=== PATIENT | female | born 1980 ===

== ENCOUNTER → 2016-10-11 | Outpatient (CLI) | payer BC | LOC: FIMAGING 15:42 | PROVIDERS: ATTEND Family Medicine | DX: Z12.31 Encounter for screening mammogram for malignant neoplasm of breast (principal) | CPT/HCPCS: G0202 ==

== ENCOUNTER → 2017-05-18 | Outpatient (CLI) | payer BC | LOC: FIMAGING 11:51 | PROVIDERS: ATTEND Obstetrics & Gynecology | DX: O09.522 Supervision of elderly multigravida, second trimester (principal); Z3A.20 20 weeks gestation of pregnancy ==

== ENCOUNTER → 2017-08-14 | Outpatient (CLI) | payer BC | LOC: FIMAGING 12:22 | PROVIDERS: ATTEND Obstetrics & Gynecology | DX: O09.523 Supervision of elderly multigravida, third trimester (principal); Z3A.33 33 weeks gestation of pregnancy; O44.03 Complete placenta previa NOS or without hemorrhage, third trimester ==

== ENCOUNTER 2017-09-11 07:46 | Inpatient (IN) | payer BC ==
--- NOTE | 2017-09-11 07:54 | PDGENHP ---
History and Physical - Chief Complaint Scheduled PLTCS for placenta previa - History of Present Illness 37 yo today at 37w2d by MILADYS of 09/30/17 (IUI date c/w 6 and 8 wk US's) - here for scheduled PLTCS due to persistent complete placenta. Previa first identified on 20 wk US lvl II with MFM (due to AMA). Followed w serial scans and has not resolved. She has not had issues with bleeding related to this, but counseled that 37 wk scheduled section recommended for delivery. Most recent US 35wks - [id number], anterior previa with granados abutting os, normal fluid. Otherwise hypothyroid, AMA, and aforementioned assisted in getting CCRM w/ ovulation induction meds and IUI. History Information - Allergies/Home Medication List Allergies/Adverse Reactions: No Known Allergies Allergy (Unverified 09/20/10 23:02) Home Medications: NO HOME MEDICATIONS 09/20/10 [Last Taken Unknown] I have personally reviewed and updated: family history, medical history, social history, surgical history Past Medical History: AMA, Hypothyroidism Review of Systems Review of Systems: ROS: 10pt was reviewed & negative except for what was stated in HPI & below Physical Exam Physical Exam: Constitutional: no apparent distress Respiratory: no respiratory distress Gastrointestinal: soft, non-tender abdomen Lab Data & Imaging Review 09/11/17 08:49 Assessment & Plan Assessment: 37 yo at 37w2d here for scheduled PLTCS due to anterior placenta previa. - Routine preop orders, weight-based Ancef. - She would like to keep her placenta, which I am okay with. - Consents, RBA, discussed at our visit in clinic last week. No tubal. JM
[2017-09-11] MEDS ORDERED: CITRIC ACID/SODIUM CITRATE 30 ML UDCUP PO ONE ×2 (07:57→10:15)
[2017-09-11] MEDS ORDERED: ceFAZolin 2 GM/DEXTROSE 100 ML IV ONE (07:57)
[2017-09-11] MEDS ORDERED: LR 500 ML IV ONE (07:57)
[2017-09-11] MEDS ORDERED: LR 1,000 ML IV SCH (08:00)
[2017-09-11] MEDS ORDERED: ceFAZolin 2 GM in D5W 100 ML IV ONE (08:15)
[2017-09-11] MEDS ORDERED: ceFAZolin 2 GM/SWFI 2 GM/20 ML SYR IVP ONE (08:30)
[2017-09-11 09:15] LABS: PLATELET COUNT 171 10^3/uL (150-400)
--- NOTE | 2017-09-11 10:06 | PREANESOB ---
Obstetric Pre-Anesthesia Info - General Info Proposed Procedure: cs : 1 Para: 0 MILADYS: 09/30/17 Gestational Age: 37 week(s) and 2 day(s) - Info Status: Full Term Monitors: External FHR Pattern: Reassuring - Labor Status Section History: Primary Indications for Current Section: Placenta Previa Labor Epidural: No Anesthesia ROS: hypothyroid, otherwise neg Allergies/Adverse Reactions: Allergy/AdvReac Type Severity Reaction Status Date / Time No Known Allergies Allergy Unverified 09/20/10 23:02 Home Medications: Medication Instructions Recorded NO HOME MEDICATIONS 09/20/10 Visit Medications: Generic Name Dose Route Start Last Admin Trade Name Freq PRN Reason Stop Dose Admin Lactated Ringer's 1,000 mls @ 125 mls/hr 09/11/17 08:00 Lr IV 09/12/17 07:59 CONT IZZY Discontinued Medications Generic Name Dose Route Start Last Admin Trade Name Freq PRN Reason Stop Dose Admin Citric Acid/Sodium Citrate 30 ml 09/11/17 07:57 Bicitra PO 09/11/17 07:58 ONCALL ONE Lactated Ringer's 500 mls @ 0 mls/hr 09/11/17 07:57 Lr IV 09/11/17 07:58 ONCE ONE As Directed Cefazolin Sodium 2 gm in 20 mls @ 200 mls/hr 09/11/17 08:30 Cefazolin Syringe IVP 09/11/17 08:35 ONCALL ONE - Anesthesia History Response to Local Anesthetics: Normal Anesthesia & Operative History: No Prior Problems (dental) Family Anesthesia History: Negative - Social History Substance Use/Abuse: Denies - Vital Signs Height/Weight (Nursing): Height 162.56 cm Weight 71.214 kg - Focused Exam Neck exam: FROM Mallampati Score: Class 2 Mouth exam: normal dental/mouth exam Pulmonary: no respiratory distress Cardiovascular: regular rate and rhythym Labs: 09/11/17 08:49 - Plan Anesthetic Plan: sab Consent Signed and on Chart: Yes Patient/Guardian Understands and Agrees to Plan: Yes
[2017-09-11] MEDS ORDERED: fentaNYL 100 MCG/2 ML INJ ONE (10:32)
[2017-09-11] MEDS ORDERED: morphINE PF 5 MG/10 ML INJ ONE (10:33)
[2017-09-11] MEDS ORDERED: PHENYLEPHRINE 10 MG/ML SDV ONE (10:36)
[2017-09-11] MEDS ORDERED: OXYTOCIN 100 UNITS/10 ML VIAL ONE (10:41)
[2017-09-11] MEDS ORDERED: ONDANSETRON 4 MG/2 ML VIAL ONE (10:41)
[2017-09-11] MEDS ORDERED: METHYLERGONOVINE MAL 0.2 MG/ML INJ ONE (11:32)
--- NOTE | 2017-09-11 12:21 | POSTANESTH ---
Post Anesthetic Evaluation Cardiovascular Status: Normal, Stable Respiratory Status: Normal, Stable Level of Consciousness/Mental Status: Can Participate in Eval Pain Control: Adequate, Prn Tx Ordered Nausea/Vomiting Control: Adequate, Prn Tx Ordered Complications Possibly Related to Anesthesia: None Noted
[2017-09-11] MEDS ORDERED: MEPERIDINE 25 MG/0.5 ML AMP IVP PRN (12:22)
[2017-09-11] MEDS ORDERED: NALOXONE HCL 0.4 MG/ML INJ IVP PRN ×2 (12:22)
[2017-09-11] MEDS ORDERED: ONDANSETRON 4 MG/2 ML VIAL IVP PRN ×2 (12:22)
[2017-09-11] MEDS ORDERED: fentaNYL 100 MCG/2 ML INJ IVP PRN (12:22)
[2017-09-11] MEDS ORDERED: HYDROmorphONE/DILAUDID 1 MG/ML INJ IVP PRN (12:22)
[2017-09-11] MEDS ORDERED: HYDROCODONE/APAP 5/325 TAB PO PRN (12:22)
[2017-09-11] MEDS ORDERED: PHENYLEPHRINE HCL 100 MCG/ML SYR IVP PRN (12:22)
--- NOTE | 2017-09-11 12:24 | POSTOPPROG ---
Post Op Note Date of Operation: 09/11/17 Surgeon: Dhaval Rodriguez Deputy Coroner: Vicki Haynes MD Anesthesiologist: Avery Richard MD Anesthesia: Spinal Pre-op Diagnosis: Complete placenta previa Post-op Diagnosis: Same Procedure: Primary low transverse section Findings: Low anterior placenta, vigorous baby boy, grossly normal placenta and cord Inf/Abcess present in the surg proc area at time of surgery?: No Depth: Superfical (Skin SQ) EBL: 600cc Complications: None Specimen(s): Cord blood gasses not sent. Placenta also not sent.
[2017-09-11] MEDS ORDERED: SIMETHICONE 80 MG TAB CHEW PO PRN (12:29)
[2017-09-11] MEDS ORDERED: DOCUSATE SODIUM 100 MG CAP PO PRN (12:29)
[2017-09-11] MEDS ORDERED: PROMETHAZINE HCL 25 MG/ML INJ IVP PRN (12:29)
[2017-09-11] MEDS ORDERED: ACETAMINOPHEN 325 MG TAB PO PRN (12:29)
--- NOTE | 2017-09-11 12:29 | SUROPNOTE ---
[facility] Operative Report - Surgery Date of Operation: 09/11/17 Surgeon: Dhaval Rodriguez Meat Clerk: Vicki Haynes MD Anesthesiologist: Avery Richard MD Anesthesia: Spinal Pre-op Diagnosis: Complete placenta previa Post-op Diagnosis: Same Procedure: Primary low transverse section Findings: Low anterior placenta, vigorous baby boy, grossly normal placenta and cord Inf/Abcess present in the surg proc area at time of surgery?: No Depth: Superfical (Skin SQ) EBL: 600cc Complications: None Specimen(s): Cord blood gasses not sent. Placenta also not sent. Technique: The patient was taken to the OR where spinal was placed and anesthesia found to be adequate. The patient was then positioned supine with a leftward tilt and a time-out was performed. She was given weight-based antibiotics prior to skin incision. The abdomen was prepped and draped in normal sterile fashion. A Pfannenstiel skin incision was made with the scalpel and carried down to the fascia. The fascia was incised in the midline and the incision extended bilaterally sharply with scissors. The fascia was dissected off of the underlying rectus muscles superiorly and inferiorly also sharply using scissors. The rectus were in the midline and the peritoneum identified and entered bluntly without issue. The peritoneal incision was extended and the bladder blade was then placed. The vesicouterine junction was identified and a bladder flap created sharply and developed bluntly. A transverse incision was made with the scalpel in the lower uterine segment and extended with cephalad and caudad traction on the incision edges. We first encountered placenta after hysterotomy. I introduced by hand and dissected the placenta off superiorly so that I could then get around and down to the head and elevated and deliver that. This was done quickly and without any delay. The head was easily elevated out of the pelvis and delivered atraumatically, followed by the shoulders and body. The nose and mouth were bulb suctioned. We did wait for 60 seconds before clamping and cutting the cord and then the infant was handed to pediatric staff. Cord blood gases were not sent and the placenta was not sent to pathology. The uterus was then exteriorized and carefully wiped of all debris. The uterus was closed in two layers - the first layer was running with 0 vicryl and the second a vertical imbricating layer using 0-vicryl. The gutters were cleared of all clots. The uterine incision was reinspected and found to be hemostatic after placement of additional figure of eight sutures of 3-0 vicryl. The uterus was then returned to the abdomen. The fascia was elevated and the rectus muscles and subcutaneous tissues were found to be hemostatic. The fascia was closed with a running 0-Vicryl - two sutures eminating from corners and meeting in the midline. The subcutaneous tissues were irrigated and hemostasis obtained. The subcutaneous space was closed with interrupted sutures of 2-0 vicryl. The skin was closed with 4-0 vloc undyed and then covered with Medipore dressing. The patient tolerated the procedure and was taken to recovery in stable condition. Lap, needle, sponge, and instrument count were announced as correct times two. I was present and scrubbed for the entire case.
[2017-09-11] MEDS ORDERED: LACTULOSE 20 GM/30 ML UDCUP PO PRN (12:31)
[2017-09-11] MEDS ORDERED: BISACODYL 10 MG SUPP PR PRN (12:31)
[2017-09-11] MEDS ORDERED: MAGNESIUM HYDROXIDE 30 ML UDCUP PO PRN (12:31)
[2017-09-11] MEDS ORDERED: POLYETHYLENE GLYCOL 3350 17 GM PKT PO PRN (12:31)
[2017-09-11] MEDS: KETOROLAC 30 MG/1 ML SDV IVP SCH ×3 (15:23→21:32)
--- NOTE | 2017-09-11 20:50 | OBPP ---
Progress Note Assessment/Plan: Assessment: 37 yo pod# 0 s/p PLTCS for placenta previa breast feeding Plan: routine post care and post operative care 09/11/17 20:47 Subjective/ Course: 09/11/17 20:49 patient is doing great! pain is well controlled. tolerating diet. ambulated in her room. denies headache and changes in vision. working on breast feeding. Objective: 09/11/17 08:49 Patient ABO/Rh B POSITIVE 09/11/17 09:35 Temp Pulse Resp BP Pulse Ox 36.6 C 80 18 99/65 L 100 09/11/17 19:40 09/11/17 19:40 09/11/17 19:40 09/11/17 19:40 09/11/17 19:40 Physical Exam - Physical Exam Neck: non-tender, full range of motion Respiratory: chest non-tender, lungs clear, normal breath sounds Cardiac/Chest: normal peripheral pulses, regular rate, rhythm Abdomen: normal bowel sounds, non-tender, other (fundus firm) Extremities: normal range of motion, non-tender, normal inspection, normal capillary refill Skin: normal color, warm/dry Neuro/Psych: no motor/sensory deficits, alert, normal mood/affect, oriented x 3
[2017-09-11] MEDS: SENNOSIDES/DOCUSATE SODIUM TAB PO SCH (21:32)
[2017-09-12] MEDS: KETOROLAC 30 MG/1 ML SDV IVP SCH ×2 (03:24→10:04)
--- NOTE | 2017-09-12 10:48 | OBPP ---
Progress Note Assessment/Plan: Assessment: 37 y/o s/p primary LTCS for placenta previa at 37 weeks ega POD #1 Plan: Routine post /post op care Encourage ambulation as tolerated 09/12/17 10:45 09/12/17 10:49 Subjective/ Course: 09/11/17 20:49 patient is doing great! pain is well controlled. tolerating diet. ambulated in her room. denies headache and changes in vision. working on breast feeding. 09/12/17 10:46 Doing well today, going well - pain well controlled. Denies h/a, visual changes. Advancing to regular diet and tolerating well. Objective: 09/12/17 05:30 Patient ABO/Rh B POSITIVE 09/11/17 09:35 Temp Pulse Resp BP Pulse Ox 36.9 C 85 18 94/62 L 99 09/12/17 08:00 09/12/17 08:00 09/12/17 08:00 09/12/17 08:00 09/12/17 08:00 Uterine Position/Fundal Height: At Umbilicus Uterine Tone: Firm Physical Exam - Physical Exam EENT: PERRL/EOMI, normal ENT inspection Neck: non-tender Respiratory: chest non-tender, lungs clear, normal breath sounds Cardiac/Chest: regular rate, rhythm, edema (small) Abdomen: hypoactive bowel sounds Extremities: normal range of motion Back: Normal inspection Skin: normal color, warm/dry Neuro/Psych: no motor/sensory deficits, alert, normal mood/affect, oriented x 3
[2017-09-12] MEDS: FERROUS SULFATE 325 MG TAB PO SCH ×2 (13:34→22:32)
[2017-09-12] MEDS: SENNOSIDES/DOCUSATE SODIUM TAB PO SCH ×2 (13:34→22:32)
[2017-09-12] MEDS: HYDROCODONE/APAP 5/325 TAB PO PRN ×3 (13:34→22:34)
[2017-09-12] MEDS: IBUPROFEN 600 MG TAB PO PRN ×2 (16:25→22:32)
[2017-09-13] MEDS: HYDROCODONE/APAP 5/325 TAB PO PRN ×5 (04:46→22:31)
[2017-09-13] MEDS: IBUPROFEN 600 MG TAB PO PRN ×3 (04:47→18:26)
[2017-09-13] MEDS ORDERED: HYDROCODONE/APAP 10/325 TAB ONE (08:31)
[2017-09-13] MEDS: FERROUS SULFATE 325 MG TAB PO SCH ×2 (08:34→22:31)
[2017-09-13] MEDS: SENNOSIDES/DOCUSATE SODIUM TAB PO SCH ×2 (08:34→22:31)
--- NOTE | 2017-09-13 11:27 | OBPP ---
Progress Note Assessment/Plan: Assessment: 1) s/p primary LTCS for placenta previa POD # 2 - pt is stable 2) Anemia - pt is asymptomatic Plan: Continue routine pp care Encourage ambulation Cont iron and colace Plan for d/c home in 48 hrs 09/13/17 11:23 Subjective/ Course: 09/11/17 20:49 patient is doing great! pain is well controlled. tolerating diet. ambulated in her room. denies headache and changes in vision. working on breast feeding. 09/12/17 10:46 Doing well today, going well - pain well controlled. Denies h/a, visual changes. Advancing to regular diet and tolerating well. 09/13/17 11:26 Pt seen and examined. Doing well with no complaints. Pain is well controlled. She is OOB, elías reg diet, voiding and passing flatus. No BM yet. Denies any f/c/ n/v/CP or SOB. BF well so far, still working on it. Wants to stay the 4 days. Objective: 09/12/17 05:30 Patient ABO/Rh B POSITIVE 09/11/17 09:35 Temp Pulse Resp BP Pulse Ox 37.1 C 63 16 87/59 L 97 09/13/17 08:15 09/13/17 08:15 09/13/17 08:15 09/13/17 08:15 09/13/17 08:15 Uterine Position/Fundal Height: Umbilicus -2 Uterine Tone: Firm Physical Exam - Physical Exam General Appearance: alert, no apparent distress, mild distress Respiratory: lungs clear, normal breath sounds Cardiac/Chest: regular rate, rhythm Abdomen: normal bowel sounds, non-tender, soft, flatus (+), incision (C/D/I, well approximated), other Extremities: non-tender, normal inspection Skin: normal color, warm/dry Neuro/Psych: alert, normal mood/affect, oriented x 3
[2017-09-14] MEDS: IBUPROFEN 600 MG TAB PO PRN ×4 (00:35→19:31)
[2017-09-14] MEDS: HYDROCODONE/APAP 5/325 TAB PO PRN ×6 (02:29→23:26)
[2017-09-14] MEDS: SENNOSIDES/DOCUSATE SODIUM TAB PO SCH ×2 (07:25→20:24)
[2017-09-14] MEDS: FERROUS SULFATE 325 MG TAB PO SCH ×2 (07:26→20:24)
--- NOTE | 2017-09-14 09:31 | OBPP ---
Progress Note Assessment/Plan: Assessment: [id number] s/p primary c/s POD#3 Plan: routine post op care cont to work with /pumping ambulate PRN plan d/c home tomorrow 09/14/17 09:28 Subjective/ Course: 09/11/17 20:49 patient is doing great! pain is well controlled. tolerating diet. ambulated in her room. denies headache and changes in vision. working on breast feeding. 09/12/17 10:46 Doing well today, going well - pain well controlled. Denies h/a, visual changes. Advancing to regular diet and tolerating well. 09/13/17 11:26 Pt seen and examined. Doing well with no complaints. Pain is well controlled. She is OOB, elías reg diet, voiding and passing flatus. No BM yet. Denies any f/c/ n/v/CP or SOB. BF well so far, still working on it. Wants to stay the 4 days. 09/14/17 09:29 Pt doing well, she reports min pain- taking ibuprofen. She is ambulating and voiding without difficulty. She reports +BM yesterday. She denies any CP, SOB, headaches. She is but reports no milk in yet- will cont to work with /pump. Desires d/c home tomorrow. Objective: 09/12/17 05:30 Patient ABO/Rh B POSITIVE 09/11/17 09:35 Temp Pulse Resp BP Pulse Ox 37.0 C 80 16 90/52 L 97 09/13/17 20:07 09/13/17 20:07 09/13/17 20:07 09/13/17 20:07 09/13/17 20:07 Uterine Position/Fundal Height: Umbilicus -2, Midline Uterine Tone: Firm Physical Exam - Physical Exam General Appearance: WD/WN, alert, no apparent distress Neck: supple Respiratory: lungs clear, normal breath sounds Cardiac/Chest: regular rate, rhythm Abdomen: normal bowel sounds, non-tender, soft, incision (healing well) Extremities: non-tender Skin: normal color, warm/dry Neuro/Psych: alert, normal mood/affect, oriented x 3
[2017-09-15] MEDS: IBUPROFEN 600 MG TAB PO PRN ×3 (01:32→13:51)
[2017-09-15] MEDS: HYDROCODONE/APAP 5/325 TAB PO PRN ×3 (03:28→13:51)
[2017-09-15] MEDS: SENNOSIDES/DOCUSATE SODIUM TAB PO SCH (07:37)
[2017-09-15] MEDS: FERROUS SULFATE 325 MG TAB PO SCH (07:37)
[2017-09-15 09:51] VITALS: BP 100/62
--- NOTE | 2017-09-15 17:00 | OBPP ---
Progress Note Assessment/Plan: Assessment: LATE NOTE - PATIENT SEEN AT 10:30AM POD 4 s/p c/s for previa mild anemia good pain control Plan: d/c home - routine care. 09/15/17 16:57 Subjective/ Course: 09/11/17 20:49 patient is doing great! pain is well controlled. tolerating diet. ambulated in her room. denies headache and changes in vision. working on breast feeding. 09/12/17 10:46 Doing well today, going well - pain well controlled. Denies h/a, visual changes. Advancing to regular diet and tolerating well. 09/13/17 11:26 Pt seen and examined. Doing well with no complaints. Pain is well controlled. She is OOB, elías reg diet, voiding and passing flatus. No BM yet. Denies any f/c/ n/v/CP or SOB. BF well so far, still working on it. Wants to stay the 4 days. 09/14/17 09:29 Pt doing well, she reports min pain- taking ibuprofen. She is ambulating and voiding without difficulty. She reports +BM yesterday. She denies any CP, SOB, headaches. She is but reports no milk in yet- will cont to work with /pump. Desires d/c home tomorrow. 09/15/17 16:58 LATE NOTE - PT SEEN AT 10:30 AM Pt doing well. baby is latching better and pt pumping and suppl to help with baby's jaundice. bld is light. urinating fine. pain controlled well with [place] and ibu. no nausea - disc high hydration for milk supply Objective: 09/12/17 05:30 Patient ABO/Rh B POSITIVE 09/11/17 09:35 Temp Pulse Resp BP Pulse Ox 36.4 C 65 16 100/62 100 09/15/17 07:30 09/15/17 07:30 09/15/17 07:30 09/15/17 07:30 09/15/17 07:30 Uterine Position/Fundal Height: Umbilicus -1 Uterine Tone: Firm Physical Exam - Physical Exam Abdomen: non-tender (approp post op tenderness), soft, other (incision CDI, no erythema) Extremities: non-tender, pedal edema (mild) Skin: normal color, warm/dry Neuro/Psych: alert, normal mood/affect
--- NOTE | 2017-09-15 17:02 | OBGCSDC ---
General Delivery Information - General Info : 1 Para: 1 Abortions: 0 Type: Primary L&D Analgesia/Anesthesia Type: Spinal Admission Date: 09/11/17 Labs: Patient ABO/Rh B POSITIVE 09/11/17 09:35 Hct 29.7 % (38.0-47.0) L 09/12/17 05:30 - Hospital Course : 09/11/17 20:49 patient is doing great! pain is well controlled. tolerating diet. ambulated in her room. denies headache and changes in vision. working on breast feeding. 09/12/17 10:46 Doing well today, going well - pain well controlled. Denies h/a, visual changes. Advancing to regular diet and tolerating well. 09/13/17 11:26 Pt seen and examined. Doing well with no complaints. Pain is well controlled. She is OOB, elías reg diet, voiding and passing flatus. No BM yet. Denies any f/c/ n/v/CP or SOB. BF well so far, still working on it. Wants to stay the 4 days. 09/14/17 09:29 Pt doing well, she reports min pain- taking ibuprofen. She is ambulating and voiding without difficulty. She reports +BM yesterday. She denies any CP, SOB, headaches. She is but reports no milk in yet- will cont to work with /pump. Desires d/c home tomorrow. 09/15/17 16:58 LATE NOTE - PT SEEN AT 10:30 AM Pt doing well. baby is latching better and pt pumping and suppl to help with baby's jaundice. bld is light. urinating fine. pain controlled well with [place] and ibu. no nausea - disc high hydration for milk supply - Delivery Providers Surgeon: Dhaval Rodriguez Health Screener: Vicki Haynes Anesthesiologist: Avery Richard - Delivery Number of Prior Sections: 0 Indications for Current Section: Placenta Previa Surgical Procedures: Scheduled, Low Transverse Data MILADYS: 09/30/17 Gestational Age: 37 week(s) and 6 day(s) [place] Delivery Date: 09/11/17 Delivery Time: 11:26 Sex of : Male Score (1 Min): 8 Score (5 Min): 9 Discharge Information - Discharge Information Prescriptions: Hydrocodone/APAP 5/325 [[place] 5/325 (*)] 1 - 2 tab PO [id number] PRN #20 tab PRN Reason: Pain, Moderate Condition: Good Instruction/Follow Up: See Instruction Sheet, Two Weeks, Four Weeks, Six Weeks
== END 2017-09-15 14:10 | disposition home or self-care (01) | DRG 766 ==
LOC: FLD 07:46 → FOB 15:35
PROVIDERS: ADMIT Obstetrics & Gynecology; ATTEND Obstetrics & Gynecology
PROC: 10D00Z1 Extraction of Products of Conception, Low, Open Approach (ICD-10-PCS; principal; 2017-09-11)
DX: O44.03 Complete placenta previa NOS or without hemorrhage, third trimester (principal); O09.513 Supervision of elderly primigravida, third trimester; O99.284 Endocrine, nutritional and metabolic diseases complicating childbirth; E03.9 Hypothyroidism, unspecified; Z3A.37 37 weeks gestation of pregnancy; Z37.0 Single live birth
CPT/HCPCS: J0690; J1885; J2210; J2274; J2370; J2405; J2590; J3010